=== PATIENT | male | born 1955 | race Two or more races ===

== ENCOUNTER 2024-07-29 21:23 | Emergency (ER) | payer OTHER ==
[~2024-07-29] VITALS: Ht 175.3 cm; Wt 82.6 kg
[2024-07-29] MEDS ORDERED: KETOROLAC TROMETHAMINE INJ 30 MG/ML VIAL ONE (22:32)
[2024-07-29] MEDS ORDERED: LIDOCAINE 5% (PATCH) 1 EA PATCH TP ONE (22:32)
[2024-07-29] MEDS: KETOROLAC TROMETHAMINE INJ 30 MG/ML VIAL IV ONE (22:35)
[2024-07-29] MEDS: LIDOCAINE 5% (PATCH) 1 EA PATCH TP ONE (22:41)
[2024-07-29] MEDS ORDERED: LIDO30AD10 TP (23:09)
[2024-07-29] MEDS ORDERED: CYCL15CA23 PO (23:09)
[2024-07-29 23:25] VITALS: BP 135/70; TEMP 98.5; O2SAT 97
== END 2024-07-29 23:26 | disposition home or self-care (01) ==
LOC: ER 21:26
DX: M54.50 Low back pain, unspecified (principal); R26.2 Difficulty in walking, not elsewhere classified; E11.9 Type 2 diabetes mellitus without complications; I10 Essential (primary) hypertension; Z79.01 Long term (current) use of anticoagulants; Z60.2 Problems related to living alone
CPT/HCPCS: 99283; 96374; 72110; J1885